=== PATIENT | male | born 1975 | race Two or more races ===

== ENCOUNTER 2024-01-17 13:50 | Emergency (ER) | payer BC, SELFPAY ==
[2024-01-17 13:54] VITALS: BP 156/95; PULSE 79; RESP 19; TEMP 36.8; O2SAT 98; BMI 33.5
--- NOTE | 2024-01-17 14:12 | EDNOTE_ITS ---
Upper Extremity Injury RME/HPI General Chief Complaint: Extremity Injury, Upper Stated Complaint: PAIN IN SHOULDER BLADE AREA SINCE LAST TUES, WORSE Time Seen by Provider: 01/17/24 13:52 Arrival date/time: 01/17/24 13:50 48-year-old male presents to the emergency department complaints of right upper back pain patient reports pain worse with movement patient denies any definite recent injury but does report prior history of injury to the right shoulder and upper back region Limitations: no limitations Related Data Previous Rx's ?Medication ?Instructions ?Recorded amoxicillin 875 mg-potassium 1 tab PO Q12H #14 tabs 01/27/18 clavulanate 125 mg tablet (Augmentin) pseudoephedrine HCl 30 mg tablet 30 mg PO BID #30 tabs 01/27/18 (Sudafed) acetaminophen 500 mg capsule 1,000 mg (2 x 500 mg) PO Q6H PRN 02/14/19 fever or pain #30 caps esomeprazole magnesium 20 mg 20 mg PO QDAY #14 caps 02/14/19 capsule,delayed release (Nexium) ondansetron HCl 4 mg tablet 4 mg PO QID PRN nausea and 02/14/19 (Zofran) vomiting #14 tabs diazepam 10 mg tablet (Valium) 10 mg PO BID PRN muscular pain 01/17/24 #10 tabs hydrocodone 5 mg-acetaminophen 325 1 tab PO BID PRN pain #10 tabs 01/17/24 mg tablet ibuprofen 800 mg tablet 800 mg PO TID PRN pain #30 tabs 01/17/24 Allergies Allergy/AdvReac Type Severity Reaction Status Date / Time No Known Allergies Allergy Verified 02/14/19 02:31 Review of Systems Review of Systems Systems Reviewed: All systems reviewed, normal except as documented Constitutional Constitutional: Reports system reviewed and no additional complaints, except as documented, Denies fever(s) and Denies headache(s) Eyes Eyes: Reports system reviewed and no additional complaints, except as documented and Denies blurry vision ENT Ears, Nose, Mouth, and Throat: Reports system reviewed and no additional complaints, except as documented, Denies headache(s), Denies nasal congestion and Denies nasal discharge Cardiovascular Cardiovascular: Reports system reviewed and no additional complaints, except as documented, Denies chest pain and Denies dyspnea Respiratory Respiratory: Reports system reviewed and no additional complaints, except as documented, Denies chest congestion, Denies cough and Denies dyspnea Gastrointestinal Gastrointestinal: Reports system reviewed and no additional complaints, except as documented and Denies abdominal pain Musculoskeletal Musculoskeletal: Reports system reviewed and no additional complaints, except as documented, Reports back pain and Denies deformity Integumentary/Breasts Skin/Breast: Reports system reviewed and no additional complaints, except as documented and Denies rash Neurologic Neurologic: Reports system reviewed and no additional complaints, except as documented, Reports as per HPI and Denies headache(s) Past Medical History Past Medical History NEUROLOGIC: Negative Neurological Disorders CARDIAC: Negative Congestive Heart Failure RESPIRATORY: Negative Chronic Obstructive Pulmonary Disease (COPD) GENITOURINARY: Negative Renal Disease ENDOCRINE: Negative Diabetes Mellitus Type 1 or Diabetes Mellitus Type 2 Social History SMOKING STATUS: Current some day smoker ED Exam General Limitations: Present no limitations General appearance: Present alert and in no apparent distress Head Head exam: Present atraumatic Eye Eye exam: Present normal appearance, PERRL and EOMI ENT ENT exam: Present normal exam, normal oropharynx and mucous membranes moist Neck Neck exam: Present normal inspection, full ROM and trachea midline Chest Chest inspection: Present normal inspection and symmetric chest wall rise Respiratory Respiratory exam: Present normal lung sounds bilaterally Cardiovascular Cardiovascular exam: Present regular rate, normal rhythm and normal heart sounds Abdominal Exam Abdominal exam: Present soft and normal bowel sounds Extremities Exam Extremities exam: Present normal inspection and full ROM Back Exam Back exam: Present normal inspection and full ROM Back 1 view image: 2 1. Pain worse with movement Neurological Exam Neurological exam: Present alert, oriented X3 and CN II-XII intact Psychiatric Psychiatric exam: Present normal affect and normal mood Skin Skin exam: Present warm, dry, intact and normal color Course Quality Measures none Orders Category Date Time Status Ketorolac Inj [Toradol Inj] Med 01/17/24 14:15 Discontinued 30 mg IM X1 ONE Vital Signs Vital signs: Vital Signs Temperature 98.3 F 01/17/24 13:54 Pulse Rate 79 01/17/24 13:54 Respiratory Rate 19 01/17/24 13:54 Blood Pressure 156/95 H 01/17/24 13:54 Pulse Oximetry (%) 98 01/17/24 13:54 Oxygen Delivery Method Room Air 01/17/24 13:54 O2 saturation 98% room air within normal limits Extremity Injury MDM Narrative MDM Narrative:: 48-year-old male presents to the emergency department complaints of right upper back pain patient reports pain worse with movement patient denies any definite recent injury but does report prior history of injury to the right shoulder and upper back region On exam patient reports no chest pain or shortness of breath no abdominal pain Patient does have tenderness right upper back suprascapular region Patient given Toradol for pain discharged home with pain medications and muscle relaxers I explained to the patient his pain persist or worsens he should have an MRI for further evaluation For emergent concerns patient struck to return immediately Patient data External records reviewed:: [facility] previous records Clinical information provided by:: patient Social determinants that could affect healthcare access:: none Patient has the following chronic illnesses:: None How is presenting disease/condition affected by chronic disease/condition?: no chronic disease Evaluation data The following diagnostics were reviewed and interpreted by me:: other (specify) (N/A) Lab and/or radiology exams considered but not ordered:: Consider not ordered Interpretation Summary: N/A Medications / Prescriptions Medications or Prescriptions considered but not ordered:: Given Medication administrations:: Medication Administration History Discontinued Medications Ketorolac Tromethamine (Ketorolac Inj 60 Mg/2 Ml Vial) 30 mg IM X1 ONE Stop: 01/17/24 14:16 Last Admin: 01/17/24 14:22 Dose: 30 mg Documented By: LP Given Consultations Consultation(s) initiated? (list below): No Diagnosis Upper Extremity Injury Differential Diagnosis: other (Shoulder pain, shoulder strain) Most likely diagnosis given after review of the tests above:: Shoulder pain right Admission Indicated Admission indicated?: not indicated Admission Request Was there a request for admission?: No Disposition Plan Disposition Plan: Discharge Discharge Attestation Discharge Attestation: The patient and all family members were given an opportunity to ask questions and understood the discharge instructions. Discharge instructions specifically effects, indications for sooner follow up or return to the emergency department, and the expected course of current diagnosis. Patient condition: Stable Discharge Plan Plan Patient Disposition: HOME (Self Care) Disposition Comment: stable Prescriptions/Referrals Prescriptions/Med Rec: New ibuprofen 800 mg tablet 800 mg PO TID PRN (Reason: pain) Qty: 30 0RF hydrocodone-acetaminophen 5-325 mg tablet 1 tab PO BID MDD 10 PRN (Reason: pain) Qty: 10 0RF diazepam [Valium] 10 mg tablet 10 mg PO BID PRN (Reason: muscular pain ) Qty: 10 0RF No Action pseudoephedrine HCl [Sudafed] 30 mg tablet 30 mg PO BID Qty: 30 0RF amoxicillin-pot clavulanate [Augmentin] 875-125 mg tablet 1 tab PO Q12H Qty: 14 0RF ondansetron HCl [Zofran] 4 mg tablet 4 mg PO QID PRN (Reason: nausea and vomiting) Qty: 14 0RF acetaminophen 500 mg capsule 1,000 mg PO Q6H PRN (Reason: fever or pain) Qty: 30 0RF esomeprazole magnesium [Nexium] 20 mg capsule,delayed release(DR/EC) 20 mg PO QDAY Qty: 14 0RF Problem List Clinical Impression: Pain in right shoulder Patient/Caregiver Discharge Instructions Education Materials: ED RICE Additional Instructions: Please follow up with your primary care doctor in the next 24-48hrs for any worsening symptoms return here immediately Print Language: Pashto Stand Alone Forms: Nely Award Info., Patient Portal Info Letter Attestation Attestation The patient was seen by the midlevel practitioner. I, the co-signing physician, was present during the entire ER visit. While I did not physically examine the patient, I was available for consultation as needed.
[2024-01-17] MEDS: KETOROLAC INJ 60 MG/2 ML VIAL 30 MG IM (14:22)
== END 2024-01-17 14:25 | disposition home or self-care (01) ==
PROVIDERS: Emergency Provider Emergency Medicine; PCP Family Medicine
DX: M25.511 Pain in right shoulder (principal)
CPT/HCPCS: 96372; 99283; J1885

== ENCOUNTER 2024-01-20 17:52 | Emergency (ER) | payer BC, SELFPAY ==
[2024-01-20 18:04] VITALS: BP 148/102; PULSE 72; RESP 19; TEMP 36.8; O2SAT 96; BMI 31.3
--- NOTE | 2024-01-20 18:04 | EDNOTE_ITS ---
ED Back Injury Pain RME/HPI General Chief Complaint: Back Pain/Injury Stated Complaint: Back pain Time Seen by Provider: 01/20/24 17:55 Arrival date/time: 01/20/24 17:52 48-year-old male presents to the emergency department complaints of right upper back pain patient reports pain worse with movement patient denies any definite recent injury but does report prior history of injury to the right shoulder and upper back region patient was seen by myself 3 days ago still has pain Limitations: no limitations Related Data Previous Rx's ?Medication ?Instructions ?Recorded amoxicillin 875 mg-potassium 1 tab PO Q12H #14 tabs 01/27/18 clavulanate 125 mg tablet (Augmentin) pseudoephedrine HCl 30 mg tablet 30 mg PO BID #30 tabs 01/27/18 (Sudafed) acetaminophen 500 mg capsule 1,000 mg (2 x 500 mg) PO Q6H PRN 02/14/19 fever or pain #30 caps esomeprazole magnesium 20 mg 20 mg PO QDAY #14 caps 02/14/19 capsule,delayed release (Nexium) ondansetron HCl 4 mg tablet 4 mg PO QID PRN nausea and 02/14/19 (Zofran) vomiting #14 tabs diazepam 10 mg tablet (Valium) 10 mg PO BID PRN muscular pain 01/17/24 #10 tabs hydrocodone 5 mg-acetaminophen 325 1 tab PO BID PRN pain #10 tabs 01/17/24 mg tablet ibuprofen 800 mg tablet 800 mg PO TID PRN pain #30 tabs 01/17/24 hydrocodone 5 mg-acetaminophen 325 1 tab PO BID PRN pain #10 tabs 01/20/24 mg tablet Allergies Allergy/AdvReac Type Severity Reaction Status Date / Time No Known Allergies Allergy Verified 02/14/19 02:31 Review of Systems Review of Systems Systems Reviewed: All systems reviewed, normal except as documented Constitutional Constitutional: Reports system reviewed and no additional complaints, except as documented, Denies fever(s) and Denies headache(s) Eyes Eyes: Reports system reviewed and no additional complaints, except as documented and Denies blurry vision ENT Ears, Nose, Mouth, and Throat: Reports system reviewed and no additional complaints, except as documented, Denies headache(s), Denies nasal congestion and Denies nasal discharge Cardiovascular Cardiovascular: Reports system reviewed and no additional complaints, except as documented, Denies chest pain and Denies dyspnea Respiratory Respiratory: Reports system reviewed and no additional complaints, except as documented, Denies chest congestion, Denies cough and Denies dyspnea Gastrointestinal Gastrointestinal: Reports system reviewed and no additional complaints, except as documented and Denies abdominal pain Musculoskeletal Musculoskeletal: Reports system reviewed and no additional complaints, except as documented, Reports arthralgias, Denies deformity, Denies joint swelling, Denies numbness, Reports stiffness and Denies tingling Integumentary/Breasts Skin/Breast: Reports system reviewed and no additional complaints, except as documented and Denies rash Neurologic Neurologic: Reports system reviewed and no additional complaints, except as documented, Reports as per HPI, Denies headache(s), Denies numbness and Denies tingling Past Medical History Past Medical History NEUROLOGIC: Negative Neurological Disorders CARDIAC: Negative Cardiac Disorders ED Exam General Limitations: Present no limitations General appearance: Present alert and in no apparent distress Head Head exam: Present atraumatic, normocephalic and normal inspection Eye Eye exam: Present normal appearance, PERRL and EOMI; Absent conjunctival injection ENT ENT exam: Present normal exam, normal oropharynx and mucous membranes moist Neck Neck exam: Present normal inspection, full ROM and trachea midline Chest Chest inspection: Present normal inspection and symmetric chest wall rise Respiratory Respiratory exam: Present normal lung sounds bilaterally; Absent respiratory distress Cardiovascular Cardiovascular exam: Present regular rate, normal rhythm and normal heart sounds Abdominal Exam Abdominal exam: Present soft and normal bowel sounds Extremities Exam Extremities exam: Present normal inspection, full ROM, tenderness (Right shoulder pain) and normal capillary refill; Absent joint swelling Back Exam Back exam: Present normal inspection and full ROM Neurological Exam Neurological exam: Present alert, oriented X3 and CN II-XII intact Psychiatric Psychiatric exam: Present normal affect and normal mood Skin Skin exam: Present warm, dry, intact and normal color Course Quality Measures none Vital Signs Vital signs: Vital Signs Temperature 98.3 F 01/20/24 18:04 Pulse Rate 72 01/20/24 18:04 Respiratory Rate 19 01/20/24 18:04 Blood Pressure 148/102 H 01/20/24 18:04 Pulse Oximetry (%) 96 01/20/24 18:04 Oxygen Delivery Method Room Air 01/20/24 18:04 O2 saturation 96% on room air within normal limits Back Pain / Injury MDM Narrative MDM Narrative:: 48-year-old male presents to the emergency department complaints of right upper back pain patient reports pain worse with movement patient denies any definite recent injury but does report prior history of injury to the right shoulder and upper back region patient was seen by myself 3 days ago still has pain On exam patient reports no chest pain or shortness of breath no abdominal pain Patient does have tenderness right upper back suprascapular region Instructed patient to return tomorrow for MRI Patient data External records reviewed:: [facility] previous records Clinical information provided by:: patient Social determinants that could affect healthcare access:: none Patient has the following chronic illnesses:: See history How is presenting disease/condition affected by chronic disease/condition?: uneffected by Evaluation data The following diagnostics were reviewed and interpreted by me:: other (specify) (N/A) Lab and/or radiology exams considered but not ordered:: Considered not ordered Interpretation Summary: N/A Medications / Prescriptions Medications or Prescriptions considered but not ordered:: Rx given Medication administrations:: Rx given Consultations Consultation(s) initiated? (list below): No Diagnosis Differential diagnosis back pain/injury: other (Shoulder pain, shoulder fracture) Most likely diagnosis given after review of the tests above:: Pinched nerve, muscle spasm Admission Indicated Admission indicated?: not indicated Admission Request Was there a request for admission?: No Disposition Plan Disposition Plan: Discharge Discharge Attestation Discharge Attestation: The patient and all family members were given an opportunity to ask questions and understood the discharge instructions. Discharge instructions specifically effects, indications for sooner follow up or return to the emergency department, and the expected course of current diagnosis. Patient condition: Stable Discharge Plan Plan Patient Disposition: HOME (Self Care) Disposition Comment: Stable Prescriptions/Referrals Prescriptions/Med Rec: New hydrocodone-acetaminophen 5-325 mg tablet 1 tab PO BID MDD 10 PRN (Reason: pain) Qty: 10 0RF No Action pseudoephedrine HCl [Sudafed] 30 mg tablet 30 mg PO BID Qty: 30 0RF amoxicillin-pot clavulanate [Augmentin] 875-125 mg tablet 1 tab PO Q12H Qty: 14 0RF ondansetron HCl [Zofran] 4 mg tablet 4 mg PO QID PRN (Reason: nausea and vomiting) Qty: 14 0RF acetaminophen 500 mg capsule 1,000 mg PO Q6H PRN (Reason: fever or pain) Qty: 30 0RF esomeprazole magnesium [Nexium] 20 mg capsule,delayed release(DR/EC) 20 mg PO QDAY Qty: 14 0RF ibuprofen 800 mg tablet 800 mg PO TID PRN (Reason: pain) Qty: 30 0RF hydrocodone-acetaminophen 5-325 mg tablet 1 tab PO BID MDD 10 PRN (Reason: pain) Qty: 10 0RF diazepam [Valium] 10 mg tablet 10 mg PO BID PRN (Reason: muscular pain ) Qty: 10 0RF Problem List Clinical Impression: Pain in right shoulder Patient/Caregiver Discharge Instructions Education Materials: ED Arthralgia Additional Instructions: Please return tomorrow for MRI of your shoulder for worsening symptoms return immediately Print Language: Danish Stand Alone Forms: Nely Award Info., Patient Portal Info Letter PA/PROJECTION TECHNICIAN Supervising Physician PA/PROJECTION TECHNICIAN Supervising Physician: Dr. James
== END 2024-01-20 19:24 | disposition home or self-care (01) ==
LOC: SERX 19:11
PROVIDERS: Emergency Provider Emergency Medicine
DX: M25.511 Pain in right shoulder (principal)
CPT/HCPCS: 99281

== ENCOUNTER 2024-01-21 11:35 | Emergency (ER) | payer BC, SELFPAY ==
--- NOTE | 2024-01-21 | XR_ITS ---
Examination: MRI cervical spine without intravenous contrast Date and time of exam: January 21, 2024 1253 hours INDICATIONS: Neck pain radiating down the right arm numbness and paresthesias in the right arm 3 weeks Technique: Multiple axial and sagittal sections of the cervical spine to been obtained. T2 weighted sagittal sections, TR 3, 270, TE 117 T1-weighted sagittal sections, TR 500, TE 11 T1-weighted axial sections, TR 607, TE 12, axial sections TR 18, TE 27 and T2 weighted transverse sections, TR 3920, TE 122. Findings: Adequate alignment cervical vertebral bodies No cervical fracture Intact odontoid Moderate disc narrowing C5-C6, C6-C7 Diffuse cervical disc desiccation No localized enlargement cervical cord C2-C3 no disc protrusion C3-C4 moderate right neural foraminal stenosis C4-C5 advanced right neural foraminal stenosis C5-C6 3 mm central subarticular osteophyte disc complex, advanced bilateral neural foraminal stenosis C6-C7 severe overall spinal stenosis up to 5 mm central left paracentral osteophyte disc complex, indenting the ventral margin cervical cord, advanced bilateral neural foraminal stenosis C7-T1 no disc protrusion IMPRESSION: C6-C7 severe overall spinal stenosis, up to 5 mm central left paracentral osteophyte disc complex, indenting the ventral margin cervical cord, advanced bilateral neural foraminal stenosis Additional spinal stenosis as above
[2024-01-21 11:36] VITALS: BMI 31.0
[2024-01-21 11:41] VITALS: BP 138/97; PULSE 77; RESP 16; TEMP 36.9; O2SAT 98
--- NOTE | 2024-01-21 11:54 | EDNOTE_ITS ---
Upper Extremity Injury RME/HPI General Chief Complaint: Extremity Injury, Upper Stated Complaint: L SHOULDER PAIN HERE FOR MRI Time Seen by Provider: 01/21/24 11:52 Arrival date/time: 01/21/24 11:35 RME / HPI RME / HPI narrative: 48-year-old male patient came in for evaluation regarding left upper extremity pain and numbness. This been ongoing for the last 3 weeks, getting worse, this time associated with tingling sensation, numbness, pain, worse with certain positional changes. Patient has been complaining of dull ache on the posterior neck. Pain radiates also to the right scapular area. Denies any motor weakness. Denies any other complaints no medication was taken prior to arrival. Related Data Previous Rx's ?Medication ?Instructions ?Recorded amoxicillin 875 mg-potassium 1 tab PO Q12H #14 tabs 01/27/18 clavulanate 125 mg tablet (Augmentin) pseudoephedrine HCl 30 mg tablet 30 mg PO BID #30 tabs 01/27/18 (Sudafed) acetaminophen 500 mg capsule 1,000 mg (2 x 500 mg) PO Q6H PRN 02/14/19 fever or pain #30 caps esomeprazole magnesium 20 mg 20 mg PO QDAY #14 caps 02/14/19 capsule,delayed release (Nexium) ondansetron HCl 4 mg tablet 4 mg PO QID PRN nausea and 02/14/19 (Zofran) vomiting #14 tabs diazepam 10 mg tablet (Valium) 10 mg PO BID PRN muscular pain 01/17/24 #10 tabs hydrocodone 5 mg-acetaminophen 325 1 tab PO BID PRN pain #10 tabs 01/17/24 mg tablet ibuprofen 800 mg tablet 800 mg PO TID PRN pain #30 tabs 01/17/24 hydrocodone 5 mg-acetaminophen 325 1 tab PO BID PRN pain #10 tabs 01/20/24 mg tablet Allergies Allergy/AdvReac Type Severity Reaction Status Date / Time No Known Allergies Allergy Verified 02/14/19 02:31 Review of Systems Review of Systems Narrative Review of Systems: Review of system reviewed and within normal limits except mentioned in HPI ED Exam Narrative Physical exam: VITAL SIGNS: Reviewed. GENERAL APPEARANCE: Alert and interactive, follows commands, no acute distress, HEAD AND FACE: Non-traumatic. ENT: PERRL, pink conjunctivitis, eyelid no trauma, Mucous membrane moist. NECK: Supple, nontender, no nuchal rigidity. CHEST: No tenderness, no crepitus, no paradoxical movement, no retractions. LUNGS: Clear, well ventilated, symmetric, no rales, no wheezing, no ronchi, no stridor, good breath sounds bilaterally. HEART: Regular rate, regular rhythm, no murmur, no gallops. ABDOMEN: Soft, positive bowel sounds, nondistended, no guarding, nontender, no rebound, no masses, RECTAL: Deferred. GENITAL: Deferred. NEUROLOGICAL: Gross motor function intact sensory function intact, Appropriate for age. MUSCULOSKELETAL: low back nontender, full range of motion. EXTREMITIES: Nontender, full range of motion. SKIN: Color pink, dry, no rash, no lacerations, no abrasions, no contusions. LYMPHATICS: Deferred. Course Quality Measures none Orders Category Date Time Status MRI Screening NOW Care 01/21/24 11:53 Active MR cervical spine wo con Stat Exams 01/21/24 Completed Vital Signs Vital signs: Vital Signs Temperature 98.5 F 01/21/24 11:41 Pulse Rate 77 01/21/24 11:41 Respiratory Rate 16 01/21/24 11:41 Blood Pressure 138/97 H 01/21/24 11:41 Pulse Oximetry (%) 98 01/21/24 11:41 Oxygen Delivery Method Room Air 01/21/24 11:41 Extremity Injury MDM Narrative MDM Narrative:: 48-year-old male patient came in for evaluation regarding left upper extremity pain and numbness. This been ongoing for the last 3 weeks, getting worse, this time associated with tingling sensation, numbness, pain, worse with certain positional changes. Patient has been complaining of dull ache on the posterior neck. Pain radiates also to the right scapular area. Denies any motor weakness. Denies any other complaints no medication was taken prior to arrival. Patient is ambulatory. Patient denies any bladder or bowel incontinence. MRI of the cervical spine showed severe cervical spinal stenosis. Results discussed with the patient. Advised the patient to follow-up with spine surgeon, patient told me that he will go to [facility] for further management. Patient data External records reviewed:: None Clinical information provided by:: none Social determinants that could affect healthcare access:: none Patient has the following chronic illnesses:: None How is presenting disease/condition affected by chronic disease/condition?: no chronic disease Evaluation data The following diagnostics were reviewed and interpreted by me:: radiology exam(s) Lab and/or radiology exams considered but not ordered:: None Interpretation Summary: MRI of the cervical spine showed Adequate alignment cervical vertebral bodies No cervical fracture Intact odontoid Moderate disc narrowing C5-C6, C6-C7 Diffuse cervical disc desiccation No localized enlargement cervical cord C2-C3 no disc protrusion C3-C4 moderate right neural foraminal stenosis C4-C5 advanced right neural foraminal stenosis C5-C6 3 mm central subarticular osteophyte disc complex, advanced bilateral neural foraminal stenosis C6-C7 severe overall spinal stenosis up to 5 mm central left paracentral osteophyte disc complex, indenting the ventral margin cervical cord, advanced bilateral neural foraminal stenosis C7-T1 no disc protrusion IMPRESSION: C6-C7 severe overall spinal stenosis, up to 5 mm central left paracentral osteophyte disc complex, indenting the ventral margin cervical cord, advanced bilateral neural foraminal stenosis Additional spinal stenosis as above Medications / Prescriptions Medications or Prescriptions considered but not ordered:: None Medication administrations:: None Consultations Consultation(s) initiated? (list below): No Diagnosis Upper Extremity Injury Differential Diagnosis: other (Cervical radiculopathy, cervical spinal stenosis, foraminal stenosis) Most likely diagnosis given after review of the tests above:: Cervical radiculopathy, cervical spinal stenosis Admission Indicated Admission indicated?: not indicated Admission Request Was there a request for admission?: No Disposition Plan Disposition Plan: Discharge Discharge Attestation Discharge Attestation: The patient and all family members were given an opportunity to ask questions and understood the discharge instructions. Discharge instructions specifically effects, indications for sooner follow up or return to the emergency department, and the expected course of current diagnosis. Patient condition: Stable Discharge Plan Plan Patient Disposition: HOME (Self Care) Disposition Comment: stable Prescriptions/Referrals Prescriptions/Med Rec: No Action pseudoephedrine HCl [Sudafed] 30 mg tablet 30 mg PO BID Qty: 30 0RF amoxicillin-pot clavulanate [Augmentin] 875-125 mg tablet 1 tab PO Q12H Qty: 14 0RF ondansetron HCl [Zofran] 4 mg tablet 4 mg PO QID PRN (Reason: nausea and vomiting) Qty: 14 0RF acetaminophen 500 mg capsule 1,000 mg PO Q6H PRN (Reason: fever or pain) Qty: 30 0RF esomeprazole magnesium [Nexium] 20 mg capsule,delayed release(DR/EC) 20 mg PO QDAY Qty: 14 0RF ibuprofen 800 mg tablet 800 mg PO TID PRN (Reason: pain) Qty: 30 0RF hydrocodone-acetaminophen 5-325 mg tablet 1 tab PO BID MDD 10 PRN (Reason: pain) Qty: 10 0RF diazepam [Valium] 10 mg tablet 10 mg PO BID PRN (Reason: muscular pain ) Qty: 10 0RF hydrocodone-acetaminophen 5-325 mg tablet 1 tab PO BID MDD 10 PRN (Reason: pain) Qty: 10 0RF Problem List Clinical Impression: Cervical radiculopathy, Cervical spinal stenosis Patient/Caregiver Discharge Instructions Discharge Activity: activity as tolerated Education Materials: ED Radiculopathy, Cervical Additional Instructions: Thank you for the opportunity for serving you today. You are stable for discharged . You are advised to: Follow-up with your spine surgeon in [place] for management of your severe spinal stenosis in 1 to 2 days Return to ED for worsening of symptoms Increase oral fluids Print Language: Barbadian Stand Alone Forms: Nely Award Info., Patient Portal Info Letter PA/SENIOR REPORT DEVELOPER Supervising Physician PA/SRINIVASAN Supervising Physician: Md Keegan
== END 2024-01-21 13:42 | disposition home or self-care (01) ==
LOC: SERX 14:02
PROVIDERS: Emergency Provider Emergency Medicine; PCP Family Medicine
DX: M48.02 Spinal stenosis, cervical region (principal); M54.12 Radiculopathy, cervical region
CPT/HCPCS: 72141; 99284